=== PATIENT | female | born 1935 | race Caucasian/White ===

== ENCOUNTER 2017-12-20 19:20 | Emergency (ER) | payer MEDICARE, SELFPAY ==
[2017-12-20 20:16] LABS: Bilirubin Negative (Negative); Blood, Urine Trace (Negative); Clarity Clear (Clear); Glucose, Urine (Dipstick) Negative (Negative); Leukocyte Negative (Negative); Nitrite Negative (Negative); Protein, Urine (Dipstick) Negative (Neg-Trace); Specific Gravity, Urine 1.015 (1.005-1.030); Urobilinogen 0.2 mg/dL (0.2-1.0)
[2017-12-20 20:23] LABS: Bacteria/HPF Rare-Few HPF (None Seen); RBC/HPF 0-3 HPF (0-3); Squamous Epithelial 0-3 HPF (0-3); WBC/HPF None Seen HPF (0-3)
== END 2017-12-20 21:55 | disposition home or self-care (01) ==
LOC: SCSER 19:20
DX: I10 Essential (primary) hypertension (principal)
CPT/HCPCS: 81003; 81015; 99283